=== PATIENT | male | born 1990 | race American Indian/Alaskan Native ===

== ENCOUNTER 2017-03-06 03:05 | Emergency (ER) | payer OTHER ==
[~2017-03-06] VITALS: Ht 177.8 cm; Wt 104.3 kg
[~2017-03-06 03:05] MED LIST: ASMANEX110 MCG IH; CYCLOBENZAPRINE10 MG PO; NORCO 5-325 TA1 EACH PO; XANAX PO
[2017-03-06] MEDS ORDERED: PREDNISONE20 MG PO (03:57)
[2017-03-06] MEDS ORDERED: VENTOLIN HFA18 GM INH (03:58)
[2017-03-06] MEDS ORDERED: TOPROL XL25 MG PO (05:49)
[2017-03-06] MEDS ORDERED: POTASSIUM CHLO20 ME1 PO (05:49)
[2017-03-06] MEDS ORDERED: CODITUSSIN AC473 ML PO (07:47)
--- NOTE | 2017-03-14 19:04 | EKG ---
[facility] [address] [facility] [place] [address] Signed Atrial fibrillation Abnormal ECG No previous ECGs available Confirmed by REBEKA CHRISTINE MD ([id number]) on 03/14/2017 7:04:24 PM Electronically Signed By: REBEKA CHRISTINE MD 03/14/17 [id number] PATIENT NAME: KARON MCBRIDE Electrocardiogram DATE OF : 86 PHYSICIAN: REBEKA CHRISTINE MD REPORT #: [id number] REPORT IS CONFIDENTIAL AND NOT TO BE RELEASED WITHOUT AUTHORIZATION
== END 2017-03-06 08:05 | disposition home or self-care (01) ==
LOC: ED 03:05
DX: R56.9 Unspecified convulsions (principal); I48.91 Unspecified atrial fibrillation; E87.6 Hypokalemia; J45.909 Unspecified asthma, uncomplicated; F17.200 Nicotine dependence, unspecified, uncomplicated; Z79.52 Long term (current) use of systemic steroids; Z79.899 Other long term (current) drug therapy
CPT/HCPCS: 70450; 71020; 73030; 80053; 83735; 84443; 84484; 85025; 85610; 85730; 93005; 93010; 99284; J7030

== ENCOUNTER 2021-10-06 15:56 | Emergency (ER) | payer BC, OTHER ==
[~2021-10-06] VITALS: Ht 177.8 cm; Wt 104.3 kg
[~2021-10-06 15:56] MED LIST changes: +CODITUSSIN AC473 ML PO; +POTASSIUM CHLO20 ME1 PO; +PREDNISONE20 MG PO; +TOPROL XL25 MG PO; +VENTOLIN HFA18 GM INH
[2021-10-06] MEDS ORDERED: ZYRTEC10 MG (17:14)
[2021-10-06] MEDS ORDERED: NASAL DECONGEST30 MG PO (17:58)
[2021-10-06] MEDS ORDERED: AMOXICILLIN500 MG PO (17:58)
[2021-10-06] MEDS ORDERED: HYDROCODON-ACE1 EA10 PO (17:58)
== END 2021-10-06 18:17 | disposition home or self-care (01) ==
LOC: ED 15:56
DX: J06.9 Acute upper respiratory infection, unspecified (principal); H66.92 Otitis media, unspecified, left ear; J32.9 Chronic sinusitis, unspecified; F17.200 Nicotine dependence, unspecified, uncomplicated
CPT/HCPCS: 87502; 99283; A9270; C9803; J1100; U0003

== ENCOUNTER 2022-04-18 00:37 | Emergency (ER) | payer BC, OTHER ==
[~2022-04-18] VITALS: Ht 177.8 cm; Wt 122.0 kg
[~2022-04-18 00:37] MED LIST changes: +AMOXICILLIN500 MG PO; +HYDROCODON-ACE1 EA10 PO; +NASAL DECONGEST30 MG PO; +ZYRTEC10 MG
--- NOTE | 2022-04-19 15:59 | EKG ---
[facility] [address] [facility] [place] [address] Signed Sinus tachycardia Otherwise normal ECG No previous ECGs available Confirmed by REBEKA CHRISTINE MD ([id number]) on 04/19/2022 3:59:11 PM Electronically Signed By: REBEKA CHRISTINE MD 04/19/22 1559 PATIENT NAME: KARON MCBRIDE KISHORE Electrocardiogram DATE OF : 86 PHYSICIAN: REBEKA CHRISTINE MD REPORT #: [id number] REPORT IS CONFIDENTIAL AND NOT TO BE RELEASED WITHOUT AUTHORIZATION
== END 2022-04-18 07:05 | disposition short-term general hospital (02) ==
LOC: ED 00:37
DX: G40.901 Epilepsy, unspecified, not intractable, with status epilepticus (principal); J45.909 Unspecified asthma, uncomplicated; F17.200 Nicotine dependence, unspecified, uncomplicated; Z79.899 Other long term (current) drug therapy
CPT/HCPCS: 31500; 36415; 36600; 51702; 62270; 70450; 71045; 80053; 81001; 82803; 82945; 83735; 84157; 84484; 85025; 86706; 87340; 87502; 87522; 89051; 93005; 93010; 94002; 96368; 99285-25; A9270; G0480; J0133; J0696; J1953; J2060; J2250; J2704; J3370; J7060; J7121; U0003